=== PATIENT | male | born 1990 | race Asian ===

== ENCOUNTER 2018-02-26 09:19 | Emergency (ER) | payer MEDICAID, OTHER ==
[~2018-02-26] VITALS: Ht 610.5 cm; Wt 89.0 kg
[2018-02-26] MEDS ORDERED: ketorolac tromethamine 15mg/ml inj. IM ONE (10:05)
[2018-02-26] MEDS ORDERED: MOME17SP BOTHNARES (10:06)
[2018-02-26 10:17] VITALS: BP 133/66
== END 2018-02-26 10:18 | disposition home or self-care (01) ==
LOC: EDSEX 09:20 → ER 09:20
DX: J30.9 Allergic rhinitis, unspecified (principal)
CPT/HCPCS: 96372; 99283; J1885